=== PATIENT | male | born 1955 | race Caucasian/White ===

== ENCOUNTER → 2023-09-23 12:33 | Outpatient (REF) | payer MEDICARE, OTHER, SELFPAY | LOC: RAD 12:33 | PROVIDERS: ATTENDING PHYSICIAN Nurse Practitioner Family | DX: R05.1 Acute cough (principal) | CPT/HCPCS: 71046 ==

== ENCOUNTER → 2025-03-03 14:16 | Outpatient (REF) | payer MEDICARE, OTHER, SELFPAY | LOC: REG 14:16 | PROVIDERS: ATTENDING PHYSICIAN Family Medicine | DX: S09.93XA Unspecified injury of face, initial encounter (principal); S49.92XA Unspecified injury of left shoulder and upper arm, initial encounter | CPT/HCPCS: 70150; 73030 ==

== ENCOUNTER 2025-05-18 06:23 | Day surgery (SDC) | payer MEDICARE, OTHER, SELFPAY | END 2025-05-18 15:21 | disposition home or self-care (01) | LOC: GI 06:23 | PROVIDERS: ATTENDING PHYSICIAN Internal Medicine | DX: R13.10 Dysphagia, unspecified (principal); K44.9 Diaphragmatic hernia without obstruction or gangrene; K22.2 Esophageal obstruction; K22.89 Other specified disease of esophagus; K20.90 Esophagitis, unspecified without bleeding; L83 Acanthosis nigricans | CPT/HCPCS: 43239; 88305; 88342 ==